=== PATIENT | male | born 2000 | race African-American/Black ===

== ENCOUNTER 2022-12-05 14:47 | Emergency (ER) | payer MEDICAID ==
[~2022-12-05] VITALS: Ht 177.8 cm; Wt 95.2 kg
[2022-12-05 16:32] VITALS: BP 132/57; PULSE 73; RESP 18; TEMP 99; O2SAT 97
[2022-12-05] MEDS ORDERED: CEPH500C PO (17:13)
[2022-12-05] MEDS ORDERED: IBUP-1456 PO (17:13)
== END 2022-12-05 17:30 | disposition home or self-care (01) ==
LOC: ER 14:47
DX: S61.432A Puncture wound without foreign body of left hand, initial encounter (principal); S60.222A Contusion of left hand, initial encounter; Z79.1 Long term (current) use of non-steroidal anti-inflammatories (NSAID); Z79.899 Other long term (current) drug therapy; W22.8XXA Striking against or struck by other objects, initial encounter; Y93.89 Activity, other specified; Y92.89 Other specified places as the place of occurrence of the external cause; Y99.8 Other external cause status
CPT/HCPCS: 73130

== ENCOUNTER 2022-12-06 20:01 | Emergency (ER) | payer MEDICAID ==
[~2022-12-06] VITALS: Ht 182.9 cm; Wt 84.0 kg
[~2022-12-06 20:01] MED LIST: CEPH500C PO; IBUP-1456 PO
[2022-12-06 21:09] LABS: Basophils # (auto) 0.1 10 ^3/uL (0-0.2); Basophils % (auto) 2.8 % (0.0-2.0); Eosinophils # (auto) 0 10 ^3/uL (0-0.8); Eosinophils % (auto) 1.2 % (0.0-7.0); Hematocrit 42.5 % (41.0-53.0); Lymphocytes # (auto) 1.3 10 ^3/uL (0.4-5.4); Lymphocytes % (auto) 33.8 % (10.0-50.0); Mean Corpuscular Volume 81.9 fL (80.0-100.0); Monocytes # (auto) 0.3 10 ^3/uL (0-1.3); Monocytes % (auto) 6.6 % (0.0-12.0); Neutrophils # (auto) 2.1 10 ^3/uL (1.6-8.6); Neutrophils % (auto) 55.6 % (37.0-80.0); Nucleated Red Blood Cells % 0.1 %; Red Cell Distribution Width 13.2 % (11.8-14.3); White Blood Cell 3.8 10^3/uL (4.4-10.8)
[2022-12-06 21:36] LABS: Acetaminophen < 2.0 UG/ML (10.0-20.0); Alanine Aminotransferase 41 U/L (7-40); Albumin 4.5 g/dL (3.2-4.8); Alkaline Phosphatase 90 U/L (46-116); Anion Gap 7 (5-15); Aspartate Aminotransferase 23 U/L (13-40); BUN/Creatinine Ratio 6.5 (10.0-20.0); Bilirubin, Total 0.3 mg/dL (0.2-1.0); Blood Urea Nitrogen 6 mg/dL (9-23); Carbon Dioxide 24 mmol/L (20-30); Chloride 109 mmol/L (98-107); Glucose 110 mg/dL (74-106); Potassium 4.1 mmol/L (3.5-5.1); Sodium 140 mmol/L (136-145); Total Protein 7.2 g/dL (5.7-8.2)
[2022-12-06 21:38] LABS: Salicylate < 3.0 mg/dL (2.8-20.0)
[2022-12-06] MEDS ORDERED: IBUPROFEN 600 MG TAB PO ONE (22:15)
[2022-12-07 01:17] LABS: Amphetamine Screen, Urine Neg (NEGATIVE); Barbiturate Scree,Urine Neg (NEGATIVE); Benzodiazephine Screen, Urine Neg (NEGATIVE); Cannabinoid Screen, Urine Neg (NEGATIVE); Cocaine Screen, Urine Neg (NEGATIVE); Opiate Scree,Urine Neg (NEGATIVE); Phencyclidine Screen, Urine Neg (NEGATIVE)
[2022-12-07 01:21] LABS: Urine Bacteria NONE SEEN /hpf (None Seen); Urine Blood Negative /uL (Negative); Urine Clarity Clear (Clear); Urine Color Yellow (Yellow); Urine Mucus FEW (None Seen); Urine Protein, UAD 1+ (Negative); Urine Specific Gravity 1.047 (1.001-1.035); Urine WBC 1 /hpf (0 - 3)
[2022-12-07] MEDS ORDERED: NITROGLYCERIN 0.4 MG SL TAB SL PRN (02:15)
[2022-12-07] MEDS ORDERED: MORPHINE SULFATE INJ 2 MG/ml SYRG IV PRN (02:15)
[2022-12-07] MEDS: SODIUM CHLOR 0.9% PF (SALINE LOCK) 10ML VIAL/SYR IV SCH ×3 (06:00→22:00)
[2022-12-07 07:55] VITALS: RESP 17; O2SAT 97
[2022-12-07] MEDS ORDERED: ACETAMINOPHEN 500 MG TAB PO PRN (09:30)
[2022-12-07 20:00] VITALS: PULSE 57; RESP 16; O2SAT 98
[2022-12-08] MEDS: SODIUM CHLOR 0.9% PF (SALINE LOCK) 10ML VIAL/SYR IV SCH ×2 (06:00→14:00)
[2022-12-08 20:30] VITALS: BP 123/57; PULSE 62; RESP 17; TEMP 98.6; O2SAT 98
== END 2022-12-08 20:45 | disposition short-term general hospital (02) ==
LOC: ER 20:01 → EDBD 20:01 → ER 12-08 20:45
DX: R45.851 Suicidal ideations (principal); S60.512A Abrasion of left hand, initial encounter; I10 Essential (primary) hypertension; W22.01XA Walked into wall, initial encounter; Y93.89 Activity, other specified; Y92.89 Other specified places as the place of occurrence of the external cause; Y99.8 Other external cause status
CPT/HCPCS: 36415; 73120; 80053; 80307; 80329; 81001; 85025